=== PATIENT | female | born 1975 | race Two or more races ===

== ENCOUNTER 2017-02-05 19:01 | Emergency (ER) | payer MEDICAID ==
[~2017-02-05] VITALS: Ht 157.5 cm; Wt 63.5 kg
[~2017-02-05 19:01] MED LIST: NORPTMEDS CO
[2017-02-05 21:39] LABS: Basophils # (auto) 0.1 uL; Eosinophils # (auto) 0.1 uL; Eosinophils % (auto) 1.4 % (0.0-7.0); Hematocrit 42.8 % (36.0-46.0); Hemoglobin 14.6 g/dL (12.2-16.2); Lymphocytes # (auto) 3.6 uL; Lymphocytes % (auto) 37.4 % (10.0-50.0); Mean Corpuscular Hemoglobin 31.1 pg (28.0-32.0); Mean Corpuscular Hgb Conc. 34.2 g/dL (32.0-36.0); Mean Corpuscular Volume 90.8 fL (80.0-100.0); Mean Platelet Volume 9.7 fL (6.9-10.8); Monocytes # (auto) 0.5 uL; Monocytes % (auto) 5.1 % (0.0-12.0); Neutrophils # (auto) 5.2 uL; Neutrophils % (auto) 55.1 % (37.0-80.0); Nucleated Red Blood Cells % 0.2 %; Platelet Count (auto) 257 10^3/uL (140-450); Red Cell Distribution Width 13.3 % (11.8-14.3); White Blood Cell 9.5 10^3/uL (4.4-10.8)
[2017-02-05 22:09] LABS: Albumin 3.9 g/dL (3.4-5.0); Alkaline Phosphatase 69 U/L (45-117); Anion Gap 10 (5-15); Aspartate Aminotransferase 13 U/L (15-37); BUN/Creatinine Ratio 22.2; Bilirubin, Total 0.2 mg/dL (0.2-1.0); Blood Urea Nitrogen 16 mg/dL (7-18); Calcium 8.6 mg/dL (8.5-10.1); Carbon Dioxide 25 mmol/L (21-32); Chloride 106 mmol/L (98-107); GFR African American 114 mL/min; GFR Non-African American 94 mL/min; Glucose 92 mg/dL (74-106); Magnesium 2.3 mg/dL (1.6-2.6); Potassium 3.1 mmol/L (3.5-5.1); Sodium 141 mmol/L (136-145); Total Protein 7.8 g/dL (6.4-8.2)
[2017-02-05] MEDS ORDERED: MORPHINE SULFATE 4 MG/ML SYRG IV ONE (23:45)
[2017-02-05] MEDS ORDERED: ONDANSETRON HCL 4 MG/2 ML VIAL IV ONE (23:45)
[2017-02-06 00:06] LABS: B-Type Natriuretic Peptide 14.8 pg/mL (0-100); Temperature: 21.5 C (20.0-25.0)
[2017-02-06] MEDS ORDERED: POTASSIUM CHL 20 Meq TABLET PO ONE (01:45)
[2017-02-06] MEDS ORDERED: ALUM & MAG HYDROX-SIMETH LIQ(MAALOX) 30 ML PO ONE (04:30)
[2017-02-06] MEDS ORDERED: FAMOTIDINE (10MG/ML) 2ML VL IV ONE (04:30)
[2017-02-06 04:55] VITALS: BP 100/58
== END 2017-02-06 05:05 | disposition home or self-care (01) ==
LOC: ER 19:01
DX: K29.70 Gastritis, unspecified, without bleeding (principal); R07.9 Chest pain, unspecified; E87.6 Hypokalemia; R06.02 Shortness of breath
CPT/HCPCS: 36415; 71020; 76705; 80053; 83690; 83735; 83880; 84443; 84484; 85025; 93005; 96374; 96375; 99285; J2270; J2405; J3490

== ENCOUNTER 2020-05-02 07:18 | Emergency (ER) | payer MEDICAID ==
[~2020-05-02] VITALS: Ht 165.1 cm; Wt 61.2 kg
[~2020-05-02 07:18] MED LIST changes: +PANT40TA2 PO
[2020-05-02] MEDS ORDERED: SODIUM CHLORIDE 0.9% 1,000 ML IV ONE (07:30)
[2020-05-02] MEDS ORDERED: LORazepam 2MG/ML-1ML VIAL IV ONE (07:30)
[2020-05-02 07:50] LABS: Basophils # (auto) 0.1 10 ^3/uL (0-0.2); Basophils % (auto) 1.1 % (0.0-2.0); Eosinophils # (auto) 0.2 10 ^3/uL (0-0.8); Eosinophils % (auto) 2.4 % (0.0-7.0); Hematocrit 40.7 % (36.0-46.0); Lymphocytes # (auto) 2.9 10 ^3/uL (0.4-5.4); Lymphocytes % (auto) 40.8 % (10.0-50.0); Mean Corpuscular Hemoglobin 30.4 pg (28.0-32.0); Mean Corpuscular Hgb Conc. 34.5 g/dL (32.0-36.0); Mean Corpuscular Volume 88.1 fL (80.0-100.0); Monocytes # (auto) 0.5 10 ^3/uL (0-1.3); Monocytes % (auto) 6.6 % (0.0-12.0); Neutrophils # (auto) 3.6 10 ^3/uL (1.6-8.6); Neutrophils % (auto) 49.1 % (37.0-80.0); Nucleated Red Blood Cells % 0.2 %; Platelet Count (auto) 248 10^3/uL (140-450); Red Blood Cells 4.62 10^6/uL (4.0-5.20); Red Cell Distribution Width 13.3 % (11.8-14.3); White Blood Cell 7.2 10^3/uL (4.4-10.8)
[2020-05-02 07:57] VITALS: BP 101/76
[2020-05-02 08:09] LABS: Albumin 3.8 g/dL (3.4-5.0); Anion Gap 7 (5-15); Blood Urea Nitrogen 9 mg/dL (7-18); Calcium 8.8 mg/dL (8.5-10.1); Carbon Dioxide 24 mmol/L (21-32); Chloride 109 mmol/L (98-107); Glucose 108 mg/dL (74-106); Potassium 3.5 mmol/L (3.5-5.1); Sodium 140 mmol/L (136-145)
[2020-05-02 08:14] LABS: Alanine Aminotransferase 22 U/L (13-56); Alkaline Phosphatase 81 U/L (45-117); Aspartate Aminotransferase 22 U/L (15-37); BUN/Creatinine Ratio 12.2; Bilirubin, Total 0.4 mg/dL (0.2-1.0); GFR African American 109 mL/min; GFR Non-African American 90 mL/min
== END 2020-05-02 10:16 | disposition home or self-care (01) ==
LOC: ER 07:18
DX: R42 Dizziness and giddiness (principal)
CPT/HCPCS: 36415; 70450; 71045; 74176; 80053; 82962; 84484; 84702; 85025; 93005; 96361; 96374; 99285; J2060; J7030

== ENCOUNTER 2021-10-31 23:02 | Inpatient (IN) | payer MEDICAID ==
[~2021-10-31] VITALS: Ht 154.9 cm; Wt 61.9 kg
[2021-11-01 01:06] LABS: Basophils # (auto) 0.1 10 ^3/uL (0-0.2); Basophils % (auto) 0.8 % (0.0-2.0); Eosinophils # (auto) 0.2 10 ^3/uL (0-0.8); Eosinophils % (auto) 2.3 % (0.0-7.0); Hematocrit 38.5 % (36.0-46.0); Hemoglobin 12.9 g/dL (12.2-16.2); Lymphocytes # (auto) 2.9 10 ^3/uL (0.4-5.4); Lymphocytes % (auto) 38.8 % (10.0-50.0); Mean Corpuscular Hemoglobin 29.3 pg (28.0-32.0); Mean Corpuscular Hgb Conc. 33.4 g/dL (32.0-36.0); Mean Corpuscular Volume 87.5 fL (80.0-100.0); Monocytes # (auto) 0.6 10 ^3/uL (0-1.3); Monocytes % (auto) 8.3 % (0.0-12.0); Neutrophils # (auto) 3.8 10 ^3/uL (1.6-8.6); Neutrophils % (auto) 49.8 % (37.0-80.0); Nucleated Red Blood Cells % 0.1 %; Red Cell Distribution Width 14.1 % (11.8-14.3); White Blood Cell 7.6 10^3/uL (4.4-10.8)
[2021-11-01 01:24] LABS: Albumin 4.2 g/dL (3.4-5.0); BUN/Creatinine Ratio 22.1; Calcium 8.7 mg/dL (8.5-10.1); Potassium 3.8 mmol/L (3.5-5.1)
[2021-11-01 01:27] LABS: Bilirubin, Total 0.2 mg/dL (0.2-1.0); Total Protein 7.4 g/dL (6.4-8.2)
[2021-11-01 01:27] LABS: Urine Bacteria FEW /hpf (None Seen); Urine Blood Negative /uL (Negative); Urine Hyaline Cast FEW /lpf (0 - 2); Urine Specific Gravity 1.013 (1.001-1.035); Urine WBC 4 /hpf (0 - 5)
[2021-11-01] MEDS ORDERED: IOHEXOL 300 MG/ML 100ML BOTTLE IJ ONE (05:09)
[2021-11-01] MEDS ORDERED: KETOROLAC TROMETH 60MG/2ML VIAL IM ONE (06:45)
[2021-11-01] MEDS ORDERED: SODIUM CHLORIDE 0.9% 1,000 ML IV ONE ×2 (08:00→15:30)
[2021-11-01] MEDS ORDERED: cefTRIAXone 1GM/50ML D5W 50 ML IV ONE (08:00)
[2021-11-01] MEDS ORDERED: ONDANSETRON HCL 4 MG/2 ML VIAL IV ONE (08:00)
[2021-11-01] MEDS ORDERED: MORPHINE SULFATE INJ 2 MG/ml SYRG IV ONE (08:00)
[2021-11-01] MEDS ORDERED: CEFTRIAXONE SODIUM 2 GM in D5W 5% 50 ML IV ONE (08:15)
[2021-11-01] MEDS ORDERED: SOD CHL 0.45% WITH 20MEQ KCL 1,000 ML IV ONE (08:15)
[2021-11-01 09:00] LABS: INR 0.93 (0.9-1.15); Partial Thromboplastin Time 26.7 sec (24.6-33.4)
[2021-11-01] MEDS ORDERED: ACETAMINOPHEN 325 MG TAB PO PRN (10:30)
[2021-11-01] MEDS ORDERED: MORPHINE SULFATE INJ 2 MG/ml SYRG IV PRN (10:30)
[2021-11-01] MEDS ORDERED: ONDANSETRON HCL 4 MG/2 ML VIAL IV PRN (10:30)
[2021-11-01] MEDS: PIPERACILLIN-TAZOB 3.375GM 100 ML IV SCH (15:24)
[2021-11-01] MEDS: HYDROcodone-ACET 5/325MG TAB PO PRN (17:09)
[2021-11-01] MEDS: SODIUM CHLORIDE 0.9% 1,000 ML IV SCH ×2 (18:50→23:13)
[2021-11-01 22:00] VITALS: BP 104/62
[2021-11-01] MEDS: MORPHINE SULFATE INJ 2 MG/ml SYRG IV PRN (22:17)
[2021-11-02 01:27] LABS: Basophils # (auto) 0 10 ^3/uL (0-0.2); Basophils % (auto) 0.6 % (0.0-2.0); Eosinophils # (auto) 0.1 10 ^3/uL (0-0.8); Eosinophils % (auto) 2.2 % (0.0-7.0); Hematocrit 34.8 % (36.0-46.0); Hemoglobin 11.7 g/dL (12.2-16.2); Lymphocytes # (auto) 3.2 10 ^3/uL (0.4-5.4); Lymphocytes % (auto) 48.3 % (10.0-50.0); Mean Corpuscular Hemoglobin 29.4 pg (28.0-32.0); Mean Corpuscular Hgb Conc. 33.7 g/dL (32.0-36.0); Mean Corpuscular Volume 87.2 fL (80.0-100.0); Monocytes # (auto) 0.4 10 ^3/uL (0-1.3); Monocytes % (auto) 6.7 % (0.0-12.0); Neutrophils # (auto) 2.8 10 ^3/uL (1.6-8.6); Neutrophils % (auto) 42.2 % (37.0-80.0); Nucleated Red Blood Cells % 0.1 %; Red Blood Cells 3.99 10^6/uL (4.0-5.20); Red Cell Distribution Width 14.5 % (11.8-14.3); White Blood Cell 6.6 10^3/uL (4.4-10.8)
[2021-11-02 01:38] LABS: Albumin 3.3 g/dL (3.4-5.0); Calcium 7.9 mg/dL (8.5-10.1); Potassium 3.7 mmol/L (3.5-5.1)
[2021-11-02 01:39] LABS: BUN/Creatinine Ratio 19.7
[2021-11-02 01:42] LABS: Bilirubin, Total 0.5 mg/dL (0.2-1.0); Total Protein 5.9 g/dL (6.4-8.2)
[2021-11-02] MEDS: PIPERACILLIN-TAZOB 3.375GM 100 ML IV SCH ×3 (02:30→18:53)
[2021-11-02 05:00] VITALS: BP 102/61
[2021-11-02] MEDS ORDERED: SUCCINYLCHOLINE CHLORIDE 20 MG/ML 10ML VIAL IV ONE (07:28)
[2021-11-02] MEDS ORDERED: ROCURONIUM 10MG/ML 10ML VIAL IV ONE ×2 (07:28→12:44)
[2021-11-02] MEDS: HYDROcodone-ACET 5/325MG TAB PO PRN ×2 (08:29→15:43)
[2021-11-02 09:00] VITALS: BP 106/64
[2021-11-02] MEDS: ENOXAPARIN SOD 40 MG/0.4 ML SYRINGE SC SCH (10:31)
[2021-11-02] MEDS: SODIUM CHLORIDE 0.9% 1,000 ML IV SCH ×2 (10:32→19:50)
[2021-11-02] MEDS ORDERED: fentaNYL CITRATE 100 MCG/2 ML VL ONE (12:44)
[2021-11-02] MEDS ORDERED: GLYCOPYRROLATE 0.2 MG/ML 1ML VIAL ONE (12:44)
[2021-11-02] MEDS ORDERED: NEOSTIGMINE 1 MG/ML INJ (10mg/10ML VIAL) ONE (12:44)
[2021-11-02] MEDS ORDERED: ONDANSETRON HCL 4 MG/2 ML VIAL ONE (12:44)
[2021-11-02] MEDS ORDERED: SODIUM CHLORIDE LOCK 10 ML ONE (12:44)
[2021-11-02] MEDS ORDERED: PROPOFOL 10 MG/ML 20 ML IV ONE (12:44)
[2021-11-02] MEDS ORDERED: MEPERIDINE HCL (25 MG/ML) 1ML VIAL ONE (12:44)
[2021-11-02] MEDS ORDERED: DexAMETHasone SOD PHOS 10MG/1ML VIAL INJ ONE (12:44)
[2021-11-02] MEDS ORDERED: MIDAZOLAM HCL 2MG/2ML 2ml VIAL (1mg/ml) ONE (12:44)
[2021-11-02 13:00] VITALS: BP 105/61
[2021-11-02] MEDS ORDERED: METOCLOPRAMIDE HCL 5MG/ml INJ 2ml VIAL IV PRN (13:15)
[2021-11-02] MEDS ORDERED: fentaNYL CITRATE 100 MCG/2 ML VL IV PRN (13:15)
[2021-11-02] MEDS ORDERED: HYDROmorphone HCL 2 MG/ML VL/or syr IV PRN ×2 (13:15)
[2021-11-02] MEDS ORDERED: KETOROLAC TROMETH 30 MG/ML 1ML VIAL IV ONE (13:15)
[2021-11-02] MEDS ORDERED: MORPHINE SULFATE 4 MG/ML SYR/VIAL IV PRN (13:15)
[2021-11-02] MEDS: MORPHINE SULFATE INJ 2 MG/ml SYRG IV PRN ×2 (17:43→21:43)
[2021-11-02 22:00] VITALS: BP 99/55
[2021-11-03] MEDS: PIPERACILLIN-TAZOB 3.375GM 100 ML IV SCH ×3 (02:30→18:47)
[2021-11-03] MEDS: SODIUM CHLORIDE 0.9% 1,000 ML IV SCH ×2 (03:53→12:50)
[2021-11-03 05:00] VITALS: BP 110/56
[2021-11-03] MEDS: MORPHINE SULFATE INJ 2 MG/ml SYRG IV PRN ×2 (06:09→12:52)
[2021-11-03 09:00] VITALS: BP 99/52
[2021-11-03] MEDS: ENOXAPARIN SOD 40 MG/0.4 ML SYRINGE SC SCH (10:12)
[2021-11-03] MEDS: PANTOPRAZOLE 40 MG/10 ML VIAL INJ IV SCH (10:12)
[2021-11-03 13:00] VITALS: BP 91/47
[2021-11-03 17:00] VITALS: BP 101/49
[2021-11-03] MEDS: HYDROcodone-ACET 5/325MG TAB PO PRN (17:27)
[2021-11-03 22:00] VITALS: BP 94/52
[2021-11-04] MEDS: MORPHINE SULFATE INJ 2 MG/ml SYRG IV PRN ×3 (00:37→13:22)
[2021-11-04] MEDS: PIPERACILLIN-TAZOB 3.375GM 100 ML IV SCH ×2 (03:21→09:31)
[2021-11-04 05:00] VITALS: BP 97/51
[2021-11-04] MEDS: SODIUM CHLORIDE 0.9% 1,000 ML IV SCH ×2 (06:46→13:30)
[2021-11-04 09:00] VITALS: BP 103/65
[2021-11-04] MEDS: PANTOPRAZOLE 40 MG/10 ML VIAL INJ IV SCH (09:31)
[2021-11-04] MEDS: ENOXAPARIN SOD 40 MG/0.4 ML SYRINGE SC SCH (09:31)
[2021-11-04] MEDS ORDERED: METR500T PO (10:22)
[2021-11-04] MEDS ORDERED: HYDR-4798 PO (10:22)
[2021-11-04] MEDS ORDERED: LEVO500T31 PO (10:22)
[2021-11-04 13:00] VITALS: BP 105/66
[2021-11-04 13:52] VITALS: BP 105/66
== END 2021-11-04 15:27 | disposition home or self-care (01) | DRG 710 ==
LOC: ER 23:02 → OVERFLOW 11-01 10:28 → WEST WING 11-01 20:56
PROVIDERS: ADMIT Internal Medicine; ATTEND Family Medicine
PROC: 0UB14ZZ Excision of Left Ovary, Percutaneous Endoscopic Approach (ICD-10-PCS; 2021-11-02)
PROC: 0DTJ4ZZ Resection of Appendix, Percutaneous Endoscopic Approach (ICD-10-PCS; principal; 2021-11-02 13:18)
DX: A41.9 Sepsis, unspecified organism (principal); K35.80 Unspecified acute appendicitis; E86.0 Dehydration; K52.9 Noninfective gastroenteritis and colitis, unspecified; N83.202 Unspecified ovarian cyst, left side; Z20.822 Contact with and (suspected) exposure to COVID-19; Z82.49 Family history of ischemic heart disease and other diseases of the circulatory system; Z80.1 Family history of malignant neoplasm of trachea, bronchus and lung
CPT/HCPCS: 36415; 74177; 76705; 80053; 81001; 81025; 85025; 85610; 85730; 86850; 86900; 86901; 87040; 96361; 96372; 96374; 96375; C9113; G0378; J0330; J0696; J1100; J1885; J2250; J2405; J2543; J2704; J7060

== ENCOUNTER 2021-11-06 09:41 | Emergency (ER) | payer MEDICAID ==
[~2021-11-06] VITALS: Ht 154.9 cm; Wt 129.0 kg
[~2021-11-06 09:41] MED LIST changes: +HYDR-4798 PO; +LEVO500T31 PO; +METR500T PO
[2021-11-06 10:24] LABS: Basophils # (auto) 0 10 ^3/uL (0-0.2); Basophils % (auto) 0.5 % (0.0-2.0); Eosinophils # (auto) 0.2 10 ^3/uL (0-0.8); Eosinophils % (auto) 2.7 % (0.0-7.0); Hematocrit 33.1 % (36.0-46.0); Lymphocytes # (auto) 1.6 10 ^3/uL (0.4-5.4); Lymphocytes % (auto) 25.3 % (10.0-50.0); Mean Corpuscular Hemoglobin 28.9 pg (28.0-32.0); Mean Corpuscular Hgb Conc. 33.3 g/dL (32.0-36.0); Mean Corpuscular Volume 86.6 fL (80.0-100.0); Monocytes # (auto) 0.4 10 ^3/uL (0-1.3); Monocytes % (auto) 5.5 % (0.0-12.0); Neutrophils # (auto) 4.2 10 ^3/uL (1.6-8.6); Red Blood Cells 3.82 10^6/uL (4.0-5.20); Red Cell Distribution Width 13.9 % (11.8-14.3); White Blood Cell 6.4 10^3/uL (4.4-10.8)
[2021-11-06 10:46] LABS: Albumin 3.6 g/dL (3.4-5.0); Potassium 3.6 mmol/L (3.5-5.1)
[2021-11-06 10:49] LABS: BUN/Creatinine Ratio 14.5; Bilirubin, Total 0.6 mg/dL (0.2-1.0); Total Protein 6.9 g/dL (6.4-8.2)
[2021-11-06 11:58] VITALS: BP 108/60
[2021-11-06] MEDS ORDERED: HYDROcodone-ACET 5/325MG TAB PO ONE (12:00)
[2021-11-06] MEDS ORDERED: IOHEXOL 300 MG/ML 100ML BOTTLE IJ ONE ×2 (12:34→12:45)
[2021-11-06 18:36] LABS: Urine Bacteria NONE SEEN /hpf (None Seen); Urine Blood 1+ /uL (Negative); Urine WBC 5 /hpf (0 - 5)
[2021-11-06 18:43] LABS: Urine Specific Gravity > 1.050 (1.001-1.035)
== END 2021-11-06 23:08 | disposition home or self-care (01) ==
LOC: ER 09:41
DX: N93.8 Other specified abnormal uterine and vaginal bleeding (principal); Z79.2 Long term (current) use of antibiotics; Z79.899 Other long term (current) drug therapy; Z90.49 Acquired absence of other specified parts of digestive tract
CPT/HCPCS: 36415; 74177; 80053; 81001; 84702; 85025; 86850; 86900; 86901; 99285; Q9967

== ENCOUNTER 2024-09-30 23:54 | Emergency (ER) | payer MEDICAID ==
[~2024-09-30] VITALS: Ht 154.9 cm; Wt 61.4 kg
[2024-10-01 00:39] LABS: Hematocrit 41.8 % (36.0-46.0); Hemoglobin 14.1 g/dL (12.2-16.2); Mean Corpuscular Hemoglobin 30.4 pg (28.0-32.0); Mean Corpuscular Volume 89.8 fL (80.0-100.0); Nucleated Red Blood Cells % 0.0 %
[2024-10-01 00:54] LABS: Chloride 105 mmol/L (98-107); Potassium 4.7 mmol/L (3.5-5.1); Sodium 141 mmol/L (136-145)
[2024-10-01 00:55] LABS: Anion Gap 8 (5-15); Calcium 9.6 mg/dL (8.7-10.4); Carbon Dioxide 28 mmol/L (20-31)
[2024-10-01 01:00] LABS: BUN/Creatinine Ratio 15.8 (10.0-20.0); Blood Urea Nitrogen 15 mg/dL (9-23)
[2024-10-01 01:01] LABS: Lipase 44 U/L (12-53)
[2024-10-01 01:08] LABS: Glucose 117 mg/dL (74-106)
[2024-10-01] MEDS: KETOROLAC TROMETH 60MG/2ML VIAL IM ONE (01:21)
[2024-10-01 01:23] LABS: Urine Protein, UAD Negative (Negative)
[2024-10-01 01:36] VITALS: BP 129/78; PULSE 69; RESP 14; TEMP 97.9; O2SAT 98
[2024-10-01] MEDS ORDERED: ACET500T58 PO (02:09)
[2024-10-01] MEDS ORDERED: ZOFR4T PO (02:09)
[2024-10-01] MEDS ORDERED: DICY10CA PO (02:09)
--- NOTE | 2024-10-01 02:09 | ED.PDOC ---
History of Present Illness HPI Comments This patient is a otherwise healthy 49-year-old Tajik-speaking only female who arrives the ED today for evaluation of left-sided facial numbness and pain as well as epigastric pain. Patient states the facial concerns has been off and on for the past three days and that the epigastric pain occurred approximately 3 hours prior to arrival. Patient denies any traumatic events. Patient denies any history of CVA or intracranial concerns. Patient denies any trauma. Vital signs were stable on arrival. Patient denies any fever nausea or vomiting. Chief Complaint: Face pain Time Seen by MD: 00:08 Primary Care Provider: [facility] Reviewed Notes: Nurses Notes Allergies: Coded Allergies: NO KNOWN ALLERGIES (Unverified , 03/22/12) Home Meds Active Scripts Hydrocodone-Acetaminophen (Hydrocodone Bitartrate/AC 10-325 mg) 1 Tab Tab, 1 TAB PO TID PRN, #20 TAB Prov:SAGRARIO HERNANDEZ MD 11/04/21 Levofloxacin (Levaquin) 500 Mg Tab, 500 MG PO DAILY, #10 TAB Prov:SAGRARIO HERNANDEZ MD 11/04/21 Metronidazole (Flagyl) 500 Mg Tab, 500 MG PO TID, #30 TAB Prov:SAGRARIO HERNANDEZ MD 11/04/21 Pantoprazole Sodium Sesquihydr (Protonix) 40 Mg Tab, 40 MG PO BID, #60 TAB Prov:JUNIOR FERRELL MD 03/30/19 Reported Medications No Reported Medication (NO REPORTED MEDICATION) Ea, 0 CO DAILY, EA PATIENT HAS NO REPORTED MEDICATIONS 06/28/14 Information Source: Patient Mode of Arrival: Ambulatory Severity: Moderate Timing: Days Duration: Since onset Prehospital treatment: None Past Medical History PAST MEDICAL HISTORY: Denies Surgical History: [employer] 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 [employer] BW DEVELOPER History Family History Family History: Reviewed,noncontributory to illness, Family hx of heart gianfranco Social History Smoker: Non-Smoker Alcohol: Denies ETOH Use Drugs: Denies Drug Use Lives In: Home Constitutional: denies: chills, diaphoresis, fatigue, fever, malaise, sweats, weakness, others EENTM: reports: others (No signs of facial pain and numbness); denies: blurred vision, double vision, ear bleeding, ear discharge, ear drainage, ear pain, ear ringing, eye pain, eye redness, hearing loss, mouth pain, mouth swelling, nasal discharge, nose bleeding, nose congestion, nose pain, photophobia, tearing, throat pain, throat swelling, voice changes Respiratory: denies: cough, hemoptysis, orthopnea, SOB at rest, shortness of breath, SOB with excertion, stridor, wheezing, others Cardiovascular: denies: chest pain, dizzy spells, diaphoresis, Dyspnea on exertion, edema, irregular heart beat, left arm pain, lightheadedness, palpitations, PND, syncope, others Gastrointestinal: reports: abdominal pain; denies: abdomen distended, blood streaked bowels, constipated, diarrhea, dysphagia, difficulty swallowing, hematemesis, melena, nausea, poor appetite, poor fluid intake, rectal bleeding, rectal pain, vomiting, others Genitourinary: denies: abnormal vagina bleeding, burning, dyspareunia, dysuria, flank pain, frequency, hematuria, incontinence, pain, , vagina discharge, urgency, others Neurological: denies: dizziness, fainting, headache, left sided numbness, left sided weakness, numbness, paresthesia, pre-existing deficit, right sided numbness, right sided weakness, seizure, speech problems, tingling, tremors, weakness, others Musculoskeletal: denies: back pain, gout, joint pain, joint swelling, muscle pain, muscle stiffness, neck pain, others Integumetry: denies: bruises, change in color, change in hair/nails, dryness, laceration, lesions, lumps, rash, wounds, others Allergic/Immunocompromised: denies: Difficulty Healing, Frequent Infections, Hives, Itching, others Hematologic/Lymphatic: denies: anemia, blood clots, easy bleeding, easy bruising, swollen glands, others Endocrine: denies: excessive hunger, excessive sweating, excessive thirst, excessive urination, flushing, intolerance to cold, intolerance to heat, unexplained weight gain, unexplained weight loss, others Psychiatric: denies: anxiety, bipolar disorder, depression, hopeless, panic disorder, schizophrenia, sleepless, suicidal, others Physical Exam General Appearance: Moderate Distress (Moderate distress due to facial and abdominal pain concerns.), Normal HEENT: Pharynx Normal, TMs Normal, Other (Patient complains of pain over the lateral aspect of the left-sided face that moves into numbness around her mouth. No signs of trauma. No facial drooping or signs of thompson palsy appreciated. Patient is BEFAST negative.) Neck: Full Range of Motion, Non-Tender, Normal, Normal Inspection Respiratory: Chest Non-Tender, Lungs Clear, No Accessory Muscle Use, No Respiratory Distress, Normal Breath Sounds Cardiovascular: No Edema, No JVD, No Murmur, No Gallop, Normal Peripheral Pulses, Regular Rate/Rhythm Breast Exam: Deferred Gastrointestinal: Other (Diffuse nonspecific epigastric tenderness to palpation. No signs of trauma. Abdomen was reasonably soft.) Genitalia: Deferred Pelvic: Deferred Rectal: Deferred Extremities: No calf tenderness, Normal capillary refill, Normal inspection, Normal range of motion, Non-tender, No pedal edema Neurologic: Alert, No Motor Deficits, No Sensory Deficits Cerebellar Function: NOT DONE Reflexes: NOT DONE Skin: Dry, Normal Color, Warm Lymphatic: No Adenopathy Was a procedure done? Was a procedure done?: No Differential Dx Considerations may include: Intracranial neoplasm, trigeminal neuralgia, thompson palsy, facial pain, cervical neuropathy, gastritis, pancreatitis X-Ray, Labs, Meds, VS Vital Signs Date Time Temp Pulse Resp B/P (MAP) Pulse Ox O2 Delivery O2 Flow Rate FiO2 10/01/24 01:36 97.9 69 14 129/78 (95) 98 97.9 10/01/24 01:30 Room Air* 0 21 10/01/24 00:21 67 09/30/24 23:54 98.0 75 18 155/87 100 98.0 Lab Test 10/01/24 01:24 10/01/24 00:26 10/01/24 00:18 10/01/24 00:13 Range/Units Troponin I High Sensitivity Pending < 3 L </=34 ng/L White Blood Count 9.9 4.4-10.8 10^3/uL Red Blood Count 4.65 4.0-5.20 10^6/uL Hemoglobin 14.1 12.2-16.2 g/dL Hematocrit 41.8 36.0-46.0 % Mean Corpuscular Volume 89.8 80.0-100.0 fL Mean Corpuscular Hemoglobin 30.4 28.0-32.0 pg Mean Corpuscular Hemoglobin Concent 33.8 32.0-36.0 g/dL Red Cell Distribution Width 13.2 11.8-14.3 % Platelet Count 292 140-450 10^3/uL Mean Platelet Volume 8.8 6.9-10.8 fL Neutrophils (%) (Auto) 41.4 37.0-80.0 % Lymphocytes (%) (Auto) 50.2 H 10.0-50.0 % Monocytes (%) (Auto) 5.3 0.0-12.0 % Eosinophils (%) (Auto) 2.3 0.0-7.0 % Basophils (%) (Auto) 0.8 0.0-2.0 % Neutrophils # (Auto) 4.1 1.6-8.6 10 ^3/uL Lymphocytes # (Auto) 5.0 0.4-5.4 10 ^3/uL Monocytes # (Auto) 0.5 0-1.3 10 ^3/uL Eosinophils # (Auto) 0.2 0-0.8 10 ^3/uL Basophils # (Auto) 0.1 0-0.2 10 ^3/uL Nucleated Red Blood Cells 0.0 % Sodium Level 141 136-145 mmol/L Potassium Level 4.7 3.5-5.1 mmol/L Chloride Level 105 98-107 mmol/L Carbon Dioxide Level 28 20-31 mmol/L Anion Gap 8 5-15 Blood Urea Nitrogen 15 9-23 mg/dL Creatinine 0.95 0.550-1.02 mg/dL Glomerular Filtration Rate Calc 73 >90 mL/min BUN/Creatinine Ratio 15.8 10.0-20.0 Serum Glucose 117 H 74-106 mg/dL Calcium Level 9.6 8.7-10.4 mg/dL Lipase 44 12-53 U/L Urine Color Colorless Yellow Urine Clarity Clear Clear Urine pH 6.5 5.0-9.0 Urine Specific [place] 1.009 1.001-1.035 Urine Protein Negative Negative Urine Ketones Negative Negative Urine Blood Negative Negative /uL Urine Nitrite Negative Negative Urine Bilirubin Negative Negative Urine Urobilinogen Normal Negative mg/dL Urine Leukocyte Esterase Negative Negative /uL Urine RBC 1 0 - 4 /hpf Urine Microscopic WBC 1 0-5 /HPF Urine Squamous Epithelial Cells Few <5 /hpf Urine Renal Epithelial Cells Few None Seen /hpf Urine Bacteria None seen None Seen /hpf Urine Glucose Normal Normal mg/dL POC Glucose 117 H 70-106 mg/dl Current Medications Medications (Trade) Dose Ordered Sig/Valerie Route Start Time Stop Time Status Last Admin Dexamethasone Sodium Phosphate (Decadron Injection) 10 mg ONCE ONCE IM 10/01/24 00:30 10/01/24 00:31 DC 10/01/24 01:21 Ketorolac Tromethamine (Toradol Injection) 30 mg ONCE ONCE IM 10/01/24 00:30 10/01/24 00:31 DC 10/01/24 01:21 X-Ray, Labs, Meds, VS Comment Serum and urine studies were evaluated by me personally. Both were unremarkable for any systemic concerns. Additional studies as well as imaging studies were pending at time of this note. Patient care is being transferred to [facility] for review of results when returned. Once evaluated, he will respond accordingly. Time of 1ST Reevaluation: 02:07 Reevaluation 1ST: Improved Consultation: PCP Patient Education/Counseling: Diagnosis, Treatment Family Education/Counseling: Diagnosis, Treatment SEPSIS Sepsis Screen Date sepsis recognized/suspect: Sep 30, 2024 Time Sepsis recognized/suspect: 2353 Recent Procedure: No On Antibiotic Therapy: No Respiratory Rate >20: No Heart Rate >90: No Temp<36 C (96.8 F) or >38.3 C: No SBP <90 or MAP <65 mmHG: No New Acute Mental Status Change: No Is the patient on CPAP, BIPAP,: No Physician Orders Head Without Contrast (10/01/24 00:18) Troponin-I Hs (10/01/24 01:18) Troponin-I Hs (10/01/24 03:18) Electrocardigram (10/01/24 00:18) Vital Signs Date Time Temp Pulse Resp B/P (MAP) Pulse Ox O2 Delivery O2 Flow Rate FiO2 10/01/24 01:36 97.9 69 14 129/78 (95) 98 97.9 10/01/24 01:30 Room Air* 0 21 10/01/24 00:21 67 09/30/24 23:54 98.0 75 18 155/87 100 98.0 Laboratory Tests Test 10/01/24 00:26 White Blood Count 9.9 10^3/uL (4.4-10.8) Medications Medications Dose Ordered Sig/Valerie Route Start Time Stop Time Status Last Admin Dose Admin Dexamethasone Sodium Phosphate 10 mg ONCE ONCE IM 10/01/24 00:30 10/01/24 00:31 DC 10/01/24 01:21 Ketorolac Tromethamine 30 mg ONCE ONCE IM 10/01/24 00:30 10/01/24 00:31 DC 10/01/24 01:21 Departure 1 Departure Time of Disposition: 02:08 Impression: Primary Impression: Facial pain Additional Impression: Abdominal pain Disposition: 01 HOME / SELF CARE / HOMELESS Condition: Stable Additional Instructions: Advised patient utilize medication as needed for symptomatic relief. e-Prescriptions Acetaminophen (Acetaminophen) 500 Mg Tab 500 MG PO Q4HP PRN, #20 TAB Prov: OMKAR HERNANDEZ 10/01/24 Ondansetron Odt 4MG Tab (ZOFRAN PO) 4 Mg Tb 4 MG PO Q6HP PRN, #10 TAB ODT TAB-DISSOLVE IN MOUTH, THEN SWALLOW Prov: OMKAR HERNANDEZ 10/01/24 Dicyclomine Hcl (BENTYL CAPSULE) 10 Mg Cp 1 CAP PO Q6HPRN, #20 CAP 0 Refills Prov: OMKAR HERNANDEZ 10/01/24 Discharged With: Self, Relative Critical Care Note Critical Care Time?: No Stability Stability form required: No Heart Score Heart Score: Heart Score Response (Comments) Value History N/A 0 EKG N/A 0 Age N/A 0 Risk Factors N/A 0 Troponin N/A 0 Total 0 OMKAR HERNANDEZ Oct 01, 2024 02:09
--- NOTE | 2024-10-01 04:05 | DVH ---
Indication: Left-sided facial pain and numbness Comparison: None Technique: Utilizing a multislice CT scanner, a CT scan of the brain was performed without intravenou s contrast. Coronal and sagittal reformatted images. All CT scans at this facility use dose modulation, iterative reconstruction, and/or weight based dosi ng when appropriate to reduce radiation dose to as low as reasonably achievable. Findings: There is no acute infarct, intracranial hemorrhage, or mass effect. There is no hydrocephalus or sign ificant midline shift. No acute, depressed calvarial fractures. No large scalp hematomas. Impression: 1. No acute intracranial process.
--- NOTE | 2024-10-01 05:15 | ECG ---
[facility] Test Date: 2024-10-01 Test Time: 00:21:56 Pat Name: LISA VICTORIA Department: ED Room: Gender: F Clinical Rn: BETH : 1975 Requested By: OMKAR HERNANDEZ Order Number: [id number] Reading MD: Sonido Harp Measurements Intervals [place] Rate: 67 P: 71 [place]: 131 QRS: 38 QRSD: 81 T: 67 QT: 378 QTc: 399 Interpretive Statements Sinus rhythm Electronically Signed On 10-02-2024 22:58:27 PDT by Sonido Harp Please click the below link to view image of tracing.
== END 2024-10-01 05:03 | disposition home or self-care (01) ==
LOC: ER 23:54
DX: R51.9 Headache, unspecified (principal); R10.13 Epigastric pain; Z79.899 Other long term (current) drug therapy
CPT/HCPCS: 36415; 70450; 80048; 81001; 82947; 83690; 84484; 85025; 93005; 96372; 99285; J1100; J1885; 82962